=== PATIENT | female | born 1975 | race Caucasian/White ===

== ENCOUNTER 2025-05-10 12:41 | Outpatient (OUT) | payer OTHER, SELFPAY ==
--- NOTE | 2025-05-10 12:51 | MM_ITS ---
Patient Name: JUDY GARCIA MR#: [id number] : 1975 Exam Date: 05/10/2025 Ordering Doctor: SAN[facility] SAMUEL [facility] REPORT PROCEDURE: MM TOMOSYNTHESIS SCREENING BI COMPARISON: MG MAMM SCREEN [facility] W CAD, 03/03/2018. MG MAMM [facility] DIAG W CAD DIG, 03/30/2014. INDICATIONS: Screening Calculator Name NCI Breast Cancer Risk Assessment Tool 5 Year Breast Cancer Risk 0.90% Lifetime Breast Cancer Risk 8.00% Personal Breast Cancer No Personal Ovarian Cancer No Treatments None Family Cancers Grandmother-maternal with throat cancer at age 60. LOCATION: [facility] BREAST COMPOSITION: There are scattered areas of fibroglandular density. FINDINGS: DIAGNOSTIC CATEGORY 0--INCOMPLETE: NEED ADDITIONAL IMAGING EVALUATION. RIGHT BREAST: No significant suspicious finding. LEFT BREAST: There is an 8 mm focal asymmetry in the lateral and inferior aspect of the left breast 7.5 cm from the nipple at approximately the 4th of 5 o'clock position. This is new when compared to the prior exam. RECOMMENDATIONS: ADDITIONAL MAMMOGRAPHIC VIEWS REQUIRED: LEFT BREAST - spot compressed craniocaudal and mediolateral oblique views of the left breast with ultrasound if necessary PLEASE NOTE: A NORMAL MAMMOGRAM DOES NOT EXCLUDE THE POSSIBILITY OF BREAST CANCER. A CLINICALLY SUSPICIOUS PALPABLE LUMP SHOULD BE BIOPSIED. Dictated by: Gavin Winkler MD on 05/10/2025 at 14:57 Approved by: Gavin Winkler MD on 05/10/2025 at 15:06
== END 2025-05-10 12:42 | disposition home or self-care (01) ==
PROVIDERS: Visit Provider Internal Medicine
DX: Z12.31 Encounter for screening mammogram for malignant neoplasm of breast (principal); Z80.8 Family history of malignant neoplasm of other organs or systems; R92.8 Other abnormal and inconclusive findings on diagnostic imaging of breast
CPT/HCPCS: 77063; 77067